=== PATIENT | female | born 1980 | race Caucasian/White ===

== ENCOUNTER 2018-01-28 09:48 | Observation (INO) ==
[2018-01-28 13:05] LABS: BASOPHILS # (AUTO) 0.1 X10^3/uL (0.0-0.1); BASOPHILS % (AUTO) 0.8 % (0.2-1.0); EOSINOPHILS # (AUTO) 0.1 x10^3/uL (0.0-0.2); HEMATOCRIT 41.8 % (36.0-47.0); HEMOGLOBIN 14.3 g/dL (12.0-16.0); LYMPHOCYTES % (AUTO) 34.6 % (21.0-51.0); MEAN CORPUSCULAR HEMOGLOBIN 28.7 pg (27.0-34.0); MEAN CORPUSCULAR HGB CONC 34.2 g/dL (33.0-35.0); MEAN CORPUSCULAR VOLUME 83.9 fL (80.0-100.0); MEAN PLATELET VOLUME 8.5 fL (7.4-11.0); MONOCYTES # (AUTO) 0.6 x10^3/uL (0.3-0.8); MONOCYTES % (AUTO) 6.8 % (0.0-13.0); NEUTROPHILS # (AUTO) 4.9 x10^3/uL (2.2-4.8); NEUTROPHILS % (AUTO) 56.8 % (42.0-75.0); PLATELET COUNT 270 X10^3/uL (150.0-450.0); RED BLOOD COUNT 4.99 X10^6/uL (3.5-5.4); RED CELL DISTRIBUTION WIDTH 13.4 % (11.6-16.5); WHITE BLOOD COUNT 8.7 X10^3/uL (3.6-10.0)
[2018-01-28] MEDS: NS 1000 ML 1,000 ML IV SCH (13:08)
[2018-01-28 13:26] LABS: BLOOD UREA NITROGEN 16 mg/dL (7-18); CALCIUM 9.1 mg/dL (8.5-10.1); CARBON DIOXIDE 30.8 mmol/L (21-32); CHLORIDE 100 mmol/L (98-107); CREATININE 0.77 mg/dL (0.55-1.02); SODIUM 137 mmol/L (136-145); TROPONIN I < 0.02 ng/mL (0-1.5); eGFR NON BLACK RACES > 60 (>60)
[2018-01-28 13:32] LABS: ALANINE AMINOTRANSFERASE 44 Units/L (12-78); ALBUMIN 3.9 g/dL (3.4-5.0); ALKALINE PHOSPHATASE 78 Units/L (46-116); ASPARTATE AMINO TRANSFERASE 20 Units/L (15-37); CKMB % 1.8 % (<4); CREATINE KINASE 79 Units/L (26-192); CREATINE KINASE MB 1.4 ng/mL (0-4.0); MAGNESIUM 1.8 mg/dL (1.7-2.9); TOTAL PROTEIN 8.2 g/dL (6.4-8.2)
--- NOTE | 2018-01-28 13:56 | RAD ---
Exam: Portable chest History: 37-year-old female with shortness of breath and chest pain Comparison: None Findings: Heart size and pulmonary vasculature are normal. Lungs are clear with no infiltrate or significant ef fusion on either side. Visualized aspect of the bony thorax is unremarkable as well. Impression: Unremarkable chest radiograph with no acute abnormality seen Reported By:
[2018-01-28 18:45] LABS: CKMB % 1.5 % (<4); CREATINE KINASE 69 Units/L (26-192); TROPONIN I < 0.02 ng/mL (0-1.5)
[2018-01-28 19:21] LABS: BILIRUBIN,URINE NEGATIVE (NEGATIVE); BLOOD/HEMOGLOBIN,URINE 1+ (NEGATIVE); GLUCOSE, URINE NEGATIVE (NEGATIVE); KETONES,URINE NEGATIVE (NEGATIVE); LEUKOCYTE ESTERASE ,URINE NEGATIVE (NEGATIVE); NITRITES,URINE NEGATIVE (NEGATIVE); PH,URINE 6.5 (5.0 - 8.0); PROTEIN,URINE NEGATIVE (NEGATIVE); UROBILINOGEN,URINE NORMAL (NORMAL)
[2018-01-28 19:28] LABS: APPEARANCE,URINE CLEAR (CLEAR); COLOR,URINE YELLOW (YELLOW)
[2018-01-28 19:29] LABS: BACTERIA,URINE TRACE /HPF (NEGATIVE); RBC,URINE 0-2 /HPF (NONE SEEN); SQUAMOUS EPITHELIAL CELL,UR MANY /HPF (NEGATIVE)
[2018-01-28] MEDS ORDERED: PATIENT'S HOME MEDICATION PO PRN (20:06)
[2018-01-28 21:11] LABS: CKMB % 1.6 % (<4); CREATINE KINASE 67 Units/L (26-192); CREATINE KINASE MB 1.1 ng/mL (0-4.0); TROPONIN I < 0.02 ng/mL (0-1.5)
--- NOTE | 2018-01-28 21:18 | DR.UPDATE ---
H&P Update History and Physical Update: WAS SEEN IN THE OFFICE TODAY. A H&P WAS COMPLETED PRIOR TO ADMISSION. PATIENT HAS BEEN SEEN AND EXAMINED WITH NO CHANGES NOTED TO H&P. Changes noted: NO Yes with the following:
[2018-01-29] MEDS: NS 1000 ML 1,000 ML IV SCH (05:48)
[2018-01-29 06:35] LABS: BASOPHILS % (AUTO) 0.7 % (0.2-1.0); EOSINOPHILS # (AUTO) 0.1 x10^3/uL (0.0-0.2); EOSINOPHILS % (AUTO) 1.4 % (0.9-2.9); HEMATOCRIT 38.2 % (36.0-47.0); LYMPHOCYTES # (AUTO) 2.4 X10^3/uL (1.3-2.9); LYMPHOCYTES % (AUTO) 38.5 % (21.0-51.0); MEAN CORPUSCULAR HEMOGLOBIN 28.6 pg (27.0-34.0); MEAN CORPUSCULAR HGB CONC 34.1 g/dL (33.0-35.0); MEAN CORPUSCULAR VOLUME 83.8 fL (80.0-100.0); MEAN PLATELET VOLUME 8.5 fL (7.4-11.0); MONOCYTES # (AUTO) 0.5 x10^3/uL (0.3-0.8); MONOCYTES % (AUTO) 7.6 % (0.0-13.0); NEUTROPHILS # (AUTO) 3.3 x10^3/uL (2.2-4.8); NEUTROPHILS % (AUTO) 51.8 % (42.0-75.0); PLATELET COUNT 194 X10^3/uL (150.0-450.0); RED BLOOD COUNT 4.55 X10^6/uL (3.5-5.4); RED CELL DISTRIBUTION WIDTH 13.5 % (11.6-16.5); WHITE BLOOD COUNT 6.3 X10^3/uL (3.6-10.0)
[2018-01-29 07:06] LABS: ALANINE AMINOTRANSFERASE 39 Units/L (12-78); ALBUMIN 3.4 g/dL (3.4-5.0); ALKALINE PHOSPHATASE 59 Units/L (46-116); ASPARTATE AMINO TRANSFERASE 20 Units/L (15-37); BLOOD UREA NITROGEN 17 mg/dL (7-18); CALCIUM 8.2 mg/dL (8.5-10.1); CARBON DIOXIDE 28.4 mmol/L (21-32); CHLORIDE 103 mmol/L (98-107); CHOL/HDL RATIO 4.2 (0.0-5.0); CHOLESTEROL 139 mg/dL (0-200); HDL CHOLESTEROL 33 mg/dL (40-60); SODIUM 139 mmol/L (136-145); TOTAL PROTEIN 7.2 g/dL (6.4-8.2); TRIGLYCERIDES 136 mg/dL (0-150); eGFR NON BLACK RACES > 60 (>60)
[2018-01-29] MEDS ORDERED: PATIENT'S HOME MEDICATION PO SCH ×3 (07:30→09:00)
[2018-01-29] MEDS ORDERED: ZOLOFT PO SCH (10:00)
[2018-01-29] MEDS ORDERED: PATIENT'S HOME MEDICATION (Valsartan-Hydrochlorothiazide [Valsartan-Hydrochlorothiazide] 1 PO SCH (10:00)
[2018-01-29] MEDS ORDERED: SYNTHROID 75 mcg TAB PO SCH (10:00)
[2018-01-29 10:45] LABS: CREATINE KINASE 81 Units/L (26-192); CREATINE KINASE MB < 1.0 ng/mL (0-4.0); TROPONIN I < 0.02 ng/mL (0-1.5)
[2018-01-29 10:51] LABS: CKMB % 1.2 % (<4)
[2018-01-29 12:13] VITALS: BP 114/57
[2018-01-29 13:58] VITALS: BMI 57.2
--- NOTE | 2018-02-22 17:21 | DR.CARTERD ---
- Discharge Summary for: Discharge Summary for Date of:: 01/29/18 - Admission Date Date of Admission: 01/28/18 - Admission Diagnoses Admission Diagnosis: 1. Chest pain 2. Left arm pain 3. Nausea 4. Headache 5. Fatigue and malaise - Discharge Date Discharge Date: 01/29/18 - Discharge Diagnoses Discharge Diagnosis: 1. Chest pain 2. Left arm pain 3. Nausea 4. Headache 5. Fatigue and malaise - Hospital Course Hospital Course: Day one, Ms. Villagran was a direct from our [place] office with complaints of chest pain. She reported severe chest pressure that was located on the left side of her chest. She also reported left arm pain. It was described as acute, pinching sensation, pressure, and tightness. Patient reported symptoms started five days prior. Associated symptoms included chest pain/pressure, left arm pain , hypertension, nausea, and headache. We admitted patient to the hospital for further evaluation and work up. We obtained serial cardiac enzymes and ekg's and placed patient on continuous cardiac monitoring. Day two, patient reported chest pain had subsided, as did the left arm pain. She denied shortness of breath. No acute distress was noted. Ekg reported sinus rhythm, rate 82. Cardiac enzymes wnl. Fasting lipid panel abnormals were: HDL Chol 33. Cbc, Cmp wnl. We planned for discharge. Instructions for medications and follow up were discussed with patient and family, both voiced understanding. Patient discharged home in stable condition with family. - Discharge Medications Discharge Medications: Home Medication List ibuprofen [Advil] 2 tab PO Q6HR 01/28/18 [History] levothyroxine 75 mcg PO DAILY 01/28/18 [History] sertraline 100 mg PO DAILY 01/28/18 [History] valsartan-hydrochlorothiazide 1 tab PO DAILY 01/28/18 [History] Prescriptions: - Discharge Disposition Discharge Disposition: Patient is to follow up in our office in one week.
== END 2018-01-29 15:10 | disposition home or self-care (01) ==
LOC: MED/SURG
PROVIDERS: ADMIT Internal Medicine; ATTEND Internal Medicine
DX: I10 Essential (primary) hypertension; M79.602 Pain in left arm; R51 Headache; R07.89 Other chest pain; R06.02 Shortness of breath
CPT/HCPCS: 36415; 71010; 71045; 80053; 80061; 81001; 82550; 82553; 83735; 84484; 85025; 85610; 85730; 93005; 94760; A4222; G0378; J7030